=== PATIENT | female | born 2000 ===

== ENCOUNTER 2020-03-24 23:10 | Inpatient (IN) | payer OTHER ==
[2020-03-25] MEDS ORDERED: OXYTOCIN 30 UNITS in 0.9% NS 30 UNIT/500 ML INFUS.BAG IVPB ONE (00:29)
[2020-03-25] MEDS: ELECTROLYTE-148 SOLN 1,000 ML IV SCH ×2 (00:30→05:00)
--- NOTE | 2020-03-25 00:35 | HP ---
Past Medical History - Primary Care Physician PCP:: Keyla Norman - Admission Chief Complaint: 19yo P0 @ 40wks was instructed to go to L&D @ 4pm by PMD, due to elevated BP in the office, for IOL, reports no FLORES, no visual changes, +FM, no VB, + ctxns, no LOF History Source: Patient Limitations to Obtaining History: No Limitations - Past Surgical History Past Surgical History: Yes: Appendectomy Hx Myomectomy: No Hx Transabdominal Cerclage: No - Smoking History Have you smoked in the past 12 months: No - Alcohol/Substance Use Hx Alcohol Use: No History of Substance Use: reports: None - Social History History of Recent Travel: No Physical Exam - Maternity Constitutional: Yes: Well Nourished, No Distress, Calm Eyes: Yes: WNL HENT: Yes: WNL Neck: Yes: WNL Cardiovascular: Yes: WNL Lungs: Clear to auscultation Breast(s): Yes: WNL - Abdominal Exam/OB Fundal Height: 40 (EFW 7.5lb by Celso) Number of Fetuses: Single Presentation: Vertex Contractions: Yes Regularity: Irregular Intensity: Mild Monitor Mode: External Heart Rate (range): 140 Heart Rate Location: Midline Category: I Accelerations: Uniform Decelerations: None - Vaginal Exam/OB Vaginal Bleeding: No Speculum Exam: No Dilatation (cm): 3-4 Effacement (%): 75% Amniotic Membrane Status: Intact Presentation: Vertex/Position Station: -3 - Physical Exam Musculoskeletal: Yes: WNL Extremities: Yes: WNL Edema: No Integumentary: Yes: WNL Deep Tendon Reflex Grade: Normal +2 ...Motor Strength: WNL Psychiatric: Yes: WNL, Alert, Oriented Assessment/Plan 19yo P0 @ 40wks with induced HTN Admit to L&D Preeclamptic labs, IVF Start Pitocin for IOL Reasons, risks, benefits and alternatives discussed Pain meds as needed
[2020-03-25] MEDS ORDERED: BUTORPHANOL TARTRATE 1 MG/ML VIAL IVPB ONE (00:42)
[2020-03-25] MEDS ORDERED: PROMETHAZINE HCL 25 MG/1 ML VIAL IVPUSH ONE (00:42)
[2020-03-25] MEDS ORDERED: OXYTOCIN 30 UNITS in 0.9% NS 30 UNIT/500 ML INFUS.BAG IVPB SCH (00:45)
[2020-03-25 01:19] LABS: BASO % 0.3 % (0-2.0); EOS % 2.8 % (0-4.5); HEMATOCRIT 32.8 % (32.4-45.2); HEMOGLOBIN 10.9 GM/dL (10.7-15.3); LYMPH % 23.9 % (8-40); MCH 25.5 pg (25.7-33.7); MCHC 33.1 g/dl (32.0-36.0); MEAN CELL VOLUME 76.9 fl (80-96); MEAN PLT VOLUME 8.8 fl (7.5-11.1); PLATELET COUNT 238 K/MM3 (134-434); RBC 4.27 M/mm3 (3.60-5.2); RDW 16.6 % (11.6-15.6); WHITE BLOOD COUNT 10.5 K/mm3 (4.0-10.0)
[2020-03-25 01:37] LABS: RETICULOCYTES 1.47 % (0.5-1.5)
[2020-03-25 01:51] LABS: INR 0.93 (0.83-1.09)
[2020-03-25 01:57] LABS: EPI CELLS >36 /uL (0-25.1); HYALINE CASTS 8 /uL (0-3.1); URINE APPEARANCE CLOUDY; URINE BACTERIA 7946 /uL (0-1359); URINE BILIRUBIN NEGATIVE (NEGATIVE); URINE COLOR YELLOW; URINE GLUCOSE (UA) NEGATIVE (NEGATIVE); URINE KETONE NEGATIVE (NEGATIVE); URINE LEUK ESTERASE 2+ (NEGATIVE); URINE NITRITE NEGATIVE (NEGATIVE); URINE PROTEIN 2+ (NEGATIVE); URINE RBC 7 /uL (0-23.9); URINE UROBILINOGEN 0.2 mg/dL (0.2-1.0); URINE WBC 558 /uL (0-25.8)
[2020-03-25 01:59] LABS: ALBUMIN 2.5 g/dl (3.4-5.0); BILIRUBIN,TOTAL 0.2 mg/dL (0.2-1); CALCIUM 8.2 mg/dL (8.5-10.1); CREATININE 0.6 mg/dL (0.55-1.3); TOT PROT 5.9 g/dl (6.4-8.2); URIC ACID 4.4 mg/dL (2.6-7.2)
[2020-03-25 02:06] VITALS: BMI 38.0
[2020-03-25 02:29] LABS: BLOOD UREA NITROGEN 10.1 mg/dL (7-18)
[2020-03-25] MEDS ORDERED: PROMETHAZINE HCL 25 MG/1 ML VIAL ONE (07:14)
[2020-03-25] MEDS ORDERED: BUTORPHANOL TARTRATE 2 MG/ML VIAL ONE (07:14)
--- NOTE | 2020-03-25 07:18 | PN ---
Progress Note, Labor Vaginal Exam #1 Labor Exam Date: 03/25/20 Labor Exam Time: 07:00 Heart Rate (range): 140 Dilatation: 4 Effacement (%): 80 Amniotic Membrane Status: Ruptured Presentation: Vertex/Position Station: -3 Remarks: She is uncomfortable, but declining epidural forewaters ruptured agreed to Stadol/Phenergan BP 160/101, if not controlled with pain meds will push Labetalol BP normalized once she became comfortable
[2020-03-25] MEDS ORDERED: OXYTOCIN 20 UNITS in 0.9% NS 20 UNIT/1,000 ML INFUS.BAG IV ONE ×2 (11:40→13:28)
[2020-03-25] MEDS ORDERED: METHYLERGONOVINE MALEATE 0.2 MG/1 ML AMP IM PRN (12:24)
[2020-03-25] MEDS ORDERED: BENZOCAINE 20% 57 GM BOTTLE TP PRN (12:24)
[2020-03-25] MEDS ORDERED: BISACODYL 10 MG SUPP.RECT RC PRN (12:24)
[2020-03-25] MEDS ORDERED: BENZOCAINE 28 GM HEMORRHOIDAL OINTMENT TP PRN (12:24)
[2020-03-25] MEDS ORDERED: WITCH HAZEL 50% (TUCKS) 40 PAD/JAR PAD TP PRN (12:24)
--- NOTE | 2020-03-25 12:24 | PN ---
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
[2020-03-25] MEDS ORDERED: OXYTOCIN 20 UNITS in 0.9% NS 20 UNIT/1,000 ML INFUS.BAG IV SCH (12:30)
[2020-03-25 12:48] LABS: CORD BASE EXCESS -4.3 mmol/L (0-2); CORD HCO3 22.4 mmHg (20-29); CORD PCO2 46.9 mmHg (30-78); CORD pH 7.297 (7.14-7.44)
[2020-03-25 12:54] LABS: CORD HCO3 21.6 mmHg (20-29); CORD PCO2 58.7 mmHg (30-78); CORD pH 7.184 (7.14-7.44)
[2020-03-25] MEDS: FERROUS SO4 325 MG TABLET (FP) PO SCH (21:57)
[2020-03-25] MEDS: IBUPROFEN 600 MG TABLET (FP) PO PRN (22:51)
[2020-03-25] MEDS: ACETAMINOPHEN 325 MG TABLET (FP) PO PRN (22:51)
[2020-03-26] MEDS: ACETAMINOPHEN 325 MG TABLET (FP) PO PRN (01:40)
[2020-03-26] MEDS: IBUPROFEN 600 MG TABLET (FP) PO PRN (01:40)
[2020-03-26] MEDS: ELECTROLYTE-148 SOLN 1,000 ML IV SCH (02:50)
--- NOTE | 2020-03-26 07:13 | PN ---
Post Progress Note - Subjective Subjective: Patient without acute complaints. Reports tolerating oral intake without nausea or vomiting. Ambulating without dizziness. Denies fevers or chills. Pain well controlled with oral pain medication. Pumping/breast feeding without issue. Post Day: 1 Type of Delivery: Vital Signs: Vital Signs Temperature 97.7 F 03/26/20 06:00 Pulse Rate 71 03/26/20 06:00 Respiratory Rate 18 03/26/20 06:00 Blood Pressure 156/92 03/26/20 06:00 O2 Sat by Pulse Oximetry (%) 100 03/25/20 22:00 Breast Exam: Yes: Soft Uterus: Yes: Fundus Firm, Fundus below umbilicus Abdomen/GI: Yes: Abdomen soft, Passing flatus, Tolerating PO Lochia: Yes: Rubra Lochia, amount: Small Extremities: Yes: Calves non-tender Perineum: Yes: Intact Activity: Ambulating - Labs Labs: CBC WBC 10.5 K/mm3 (4.0-10.0) H 03/24/20 01:00 RBC 4.27 M/mm3 (3.60-5.2) 03/24/20 01:00 Hgb 10.9 GM/dL (10.7-15.3) 03/24/20 01:00 Hct 32.8 % (32.4-45.2) 03/24/20 01:00 MCV 76.9 fl (80-96) L 03/24/20 01:00 MCH 25.5 pg (25.7-33.7) L 03/24/20 01:00 MCHC 33.1 g/dl (32.0-36.0) 03/24/20 01:00 RDW 16.6 % (11.6-15.6) H 03/24/20 01:00 Plt Count 241 K/MM3 (134-434) 03/25/20 01:00 MPV 8.8 fl (7.5-11.1) 03/24/20 01:00 Absolute Neuts (auto) 6.9 K/mm3 (1.5-8.0) 03/24/20 01:00 Neutrophils % 66.0 % (42.8-82.8) 03/24/20 01:00 Lymphocytes % 23.9 % (8-40) 03/24/20 01:00 Monocytes % 7.0 % (3.8-10.2) 03/24/20 01:00 Eosinophils % 2.8 % (0-4.5) 03/24/20 01:00 Basophils % 0.3 % (0-2.0) 03/24/20 01:00 Nucleated RBC % 0 % (0-0) 03/24/20 01:00 Retic Count 1.47 % (0.5-1.5) 03/25/20 01:00 Assessment/Plan 27yo s/p , doing well stable, afebrile. Asymptomatic for anemia. care instructions reviewed. Continue routine care. Ambulation encouraged Discharge instruction reviewed.
[2020-03-26 08:45] LABS: BASO % 0.3 % (0-2.0); EOS % 1.5 % (0-4.5); HEMATOCRIT 30.5 % (32.4-45.2); HEMOGLOBIN 10.2 GM/dL (10.7-15.3); LYMPH % 23.8 % (8-40); MCH 25.9 pg (25.7-33.7); MCHC 33.6 g/dl (32.0-36.0); MEAN CELL VOLUME 77.1 fl (80-96); MEAN PLT VOLUME 9.4 fl (7.5-11.1); MONO % 7.4 % (3.8-10.2); PLATELET COUNT 194 K/MM3 (134-434); RBC 3.95 M/mm3 (3.60-5.2); RDW 16.6 % (11.6-15.6)
[2020-03-26] MEDS: FERROUS SO4 325 MG TABLET (FP) PO SCH ×2 (10:49→21:25)
[2020-03-26] MEDS: PRENATAL VITAMINS W/ FOLIC ACID TABLET (FP) PO SCH (10:49)
--- NOTE | 2020-03-26 18:45 | CON.PSY ---
Psychiatry Consult Chief Complaint: 19 Year old female seen for? Depression.. Patient apparantly had a history of Depression.. She denies that she was ever HOspitalized or taken any Psych meds.. I am very Happy and I dont feel Depressed. Staff [id number] no issues with her or [facility]. They are bonding well. - Previous Psychiatric Treatment Outpatient: None Inpatient: None - Previous Substance Abuse Treatment Outpatient: None Inpatient: None - Current Medications Current Medications: Active Medications Acetaminophen (Tylenol -) 650 mg PO Q3H PRN PRN Reason: FEVER Last Admin: 03/26/20 01:40 Dose: 650 mg Documented by: Benzocaine (Americaine 20% Bowden -) 1 spray TP PRN PRN PRN Reason: Pain - Topical Last Admin: 03/25/20 22:51 Dose: 1 spray Documented by: Benzocaine (Americaine Ointment -) 1 applic TP PRN PRN PRN Reason: Pain - Topical Bisacodyl (Dulcolax Suppository -) 10 mg RC PRN PRN PRN Reason: CONSTIPATION Ferrous Sulfate (Feosol -) 325 mg PO BID [facility] Last Admin: 03/26/20 10:49 Dose: 325 mg Documented by: Ibuprofen (Motrin -) 600 mg PO Q4H PRN PRN Reason: PAIN LEVEL 1-5 Last Admin: 03/26/20 01:40 Dose: 600 mg Documented by: Methylergonovine Maleate (Methergine Injection -) 0.2 mg IM Q4H PRN PRN Reason: EXCESSIVE BLEEDING (L&D) Multivit/Folic Acid/Iron ( Vitamins (Sjr) -) 1 tab PO DAILY [facility] Last Admin: 03/26/20 10:49 Dose: 1 tab Documented by: Senna/Docusate Sodium (Pericolace -) 2 tablet PO HS PRN PRN Reason: CONSTIPATION Witch Nalini/Glycerin (Tucks Pads -) 1 pad TP PRN PRN PRN Reason: Pain - Topical - Allergies Allergies: Allergies Allergy/AdvReac Type Severity Reaction Status Date / Time No Known Allergies Allergy Verified 03/25/20 01:32 - Current Living Status Usual Living Arrangement: With Spouse - Current Mental Status Evaluation Appearance: Well Groomed Attitude: Cooperative - Affect Affect: Full Range Appropriateness: Appropriate to Content - Mood Mood: Euthymic - Speech/Language Expressive: Coherent - Psychomotor Activity Psychomotor Activity: Normal - Thought Process Thought Process: Intact - Thought Content Hallucinations: Absent Delusions: Absent - Self Perception Self Perception: No Impairment - Cognition Attention: Alert Orientation: Time Memory, Immediate Recall: Intact Memory, Short Term: 3/3 Memory, Remote with Promptin/3 - Concentration Serial Sevens Intact: Yes Simple Calculations Intact: Yes - Abstraction Proverb Interpretation: Intact Judgement: Intact - Insight Insight: Intact - Impulse Control Impulse Control: Good Control - Suicidal Ideation Suicidal Ideation: No - Homicidal Ideation Homicidal Ideation: No Assessment/Plan 1) Patient is cleared to go home. 2) No Psych meds or Psych follow up needed.
[2020-03-26] MEDS ORDERED: SENNOSIDES/DOCUSATE COMBO (SENNA PLUS) TABLET (UD) PO PRN (22:00)
--- NOTE | 2020-03-27 00:08 | PN ---
Post Progress Note - Subjective Subjective: Patient without acute complaints. Mild FLORES, just received motrin/tylenol Denies visual changes, ruq pain Reports tolerating oral intake without nausea or vomiting. Ambulating without dizziness. Denies fevers or chills. Pain well controlled with oral pain medication. - reports milk has started to come in Passing flatus. Post Day: 2 Type of Delivery: Vital Signs: Vital Signs Temperature 98.7 F 03/26/20 21:50 Pulse Rate 69 03/26/20 21:50 Respiratory Rate 18 03/26/20 21:50 Blood Pressure 115/76 03/26/20 21:50 O2 Sat by Pulse Oximetry (%) 99 03/26/20 21:50 Breast Exam: Yes: Soft Uterus: Yes: Fundus Firm, Fundus below umbilicus Abdomen/GI: Yes: Abdomen soft, Passing flatus, Tolerating PO. No: Abdominal Distention, Tender Lochia: Yes: Rubra Lochia, amount: Small Extremities: Yes: Calves non-tender. No: Edema - Labs Labs: CBC WBC 12.0 K/mm3 (4.0-10.0) H 03/26/20 07:30 RBC 3.95 M/mm3 (3.60-5.2) 03/26/20 07:30 Hgb 10.2 GM/dL (10.7-15.3) L 03/26/20 07:30 Hct 30.5 % (32.4-45.2) L 03/26/20 07:30 MCV 77.1 fl (80-96) L 03/26/20 07:30 MCH 25.9 pg (25.7-33.7) 03/26/20 07:30 MCHC 33.6 g/dl (32.0-36.0) 03/26/20 07:30 RDW 16.6 % (11.6-15.6) H 03/26/20 07:30 Plt Count 194 K/MM3 (134-434) 03/26/20 07:30 MPV 9.4 fl (7.5-11.1) 03/26/20 07:30 Absolute Neuts (auto) 8.0 K/mm3 (1.5-8.0) 03/26/20 07:30 Neutrophils % 67.0 % (42.8-82.8) 03/26/20 07:30 Lymphocytes % 23.8 % (8-40) 03/26/20 07:30 Monocytes % 7.4 % (3.8-10.2) 03/26/20 07:30 Eosinophils % 1.5 % (0-4.5) 03/26/20 07:30 Basophils % 0.3 % (0-2.0) 03/26/20 07:30 Nucleated RBC % 0 % (0-0) 03/26/20 07:30 Retic Count 1.47 % (0.5-1.5) 03/25/20 01:00 Haptoglobin 118 mg/dL (33-278) 03/25/20 01:00 Assessment/Plan 19 yo PPD # 2 s/p with PIH, afebrile 1. BPs labile, this AM, plan to monitor If continued stable, plan for DC home today 2. s/p psych consult yesterday, stable for DC home 3. Patient encouraged to contact MD for: - Severe pain not controlled by oral pain medication - Fevers or chills - Nausea or vomiting, intolerance of oral intake 4. Patient to follow up in office in 1-2 wks for BP check, 4-6 weeks for visit
[2020-03-27] MEDS: ACETAMINOPHEN 325 MG TABLET (FP) PO PRN (07:47)
[2020-03-27] MEDS: IBUPROFEN 600 MG TABLET (FP) PO PRN (07:48)
[2020-03-27] MEDS: PRENATAL VITAMINS W/ FOLIC ACID TABLET (FP) PO SCH (10:29)
[2020-03-27] MEDS: FERROUS SO4 325 MG TABLET (FP) PO SCH (10:29)
[2020-03-27 14:26] VITALS: BP 135/85; PULSE 70; TEMP 97.4
--- NOTE | 2020-04-02 16:52 | PATH ---
Surgical Pathology Report Patient Name: VINICIUS SANDOVAL [facility]. Rec. 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 Specimen(s) Received PLACENTA Clinical History , history of migraines Final Diagnosis PLACENTA: THIRD TRIMESTER PLACENTA. TRIVASCULAR CORD. MEMBRANES WITH NO DIAGNOSTIC ABNORMALITIES. Electronically Signed Emmy Mcfarland M.D. Gross Description The specimen is received fresh labeled placenta and is a 541 gram, 17.0 x 16.0 x 2.5 cm. placenta with attached membranes and umbilical cord. The attached membranes are arora, translucent with focal opacities and insert marginally. The umbilical cord measures 20 cm. in length and averages 1 cm. in diameter. The cord inserts centrally. No true knots or strictures are identified. Cut surface of the umbilical cord reveals 3 vessels. The surface is chicas-blue with minimal fibrin deposition and appropriate caliber vessels. The maternal surface is red-brown with focal defects. Sectioning reveals red-brown, spongy parenchyma. No lesions are identified. Kiln Mechanic sections are submitted in three cassettes as follows: 1- membrane rolls and umbilical cord; 2-3- full thickness sections of placenta. /03/31/2020 [facility]03/31/2020
== END 2020-03-27 17:20 | disposition home or self-care (01) | DRG 560 ==
LOC: JLDR 23:10 → J3W 03-25 15:16
PROVIDERS: ADMIT Obstetrics & Gynecology; ATTEND Obstetrics & Gynecology
PROC: 10E0XZZ Delivery of Products of Conception, External Approach (ICD-10-PCS; principal; 2020-03-25)
PROC: 3E033VJ Introduction of Other Hormone into Peripheral Vein, Percutaneous Approach (ICD-10-PCS; 2020-03-25)
DX: O48.0 Post-term pregnancy (principal); O13.3 Gestational [pregnancy-induced] hypertension without significant proteinuria, third trimester; Z3A.40 40 weeks gestation of pregnancy; Z37.0 Single live birth; Z86.59 Personal history of other mental and behavioral disorders; Z90.49 Acquired absence of other specified parts of digestive tract
CPT/HCPCS: 36415; 36600; 59409; 80053; 81003; 82803; 82977; 83010; 84550; 85025; 85032; 85045; 85610; 85730; 86780; 86850; 86900; 86901; 88307-TC; U0003